=== PATIENT | female | born 1990 | race Caucasian/White ===

== ENCOUNTER 2021-04-18 01:18 | Emergency (ER) | payer OTHER ==
[~2021-04-18] VITALS: Ht 157.5 cm; Wt 83.2 kg
[~2021-04-18 01:18] MED LIST: MOTRIN 600600 MG/TAB PO; PERCOCET 325 MG1 TA2 PO; PRENATAL1 TA7 PO; SYNTHROID 0.0.025 MG PO
[2021-04-18 01:47] LABS: COLLECTION METHOD CLEAN CATCH
[2021-04-18 02:06] LABS: BUDDING YEAST Present /hpf; PH 6 (5-8); SQUAMOUS EPITHELIAL 0-2 /hpf; URINE APPEARANCE Cloudy; URINE BACTERIA None Seen /hpf; URINE BILIRUBIN Negative (NEGATIVE); URINE BLOOD 3+ (NEGATIVE); URINE COLOR Yellow; URINE GLUCOSE Negative (NEGATIVE); URINE KETONE Negative (NEGATIVE); URINE LEUKOCYTE ESTERASE 3+ (NEGATIVE); URINE NITRATE Negative (NEGATIVE); URINE PROTEIN(semi-quant) 2+ (NEGATIVE); URINE RBC >50 /hpf; URINE UROBILINOGEN Negative (NEGATIVE)
[2021-04-18] MEDS ORDERED: CEFTIN 250250 MG/TAB PO (02:13)
[2021-04-18 02:30] VITALS: BP 131/70; PULSE 71; TEMP 98.1
== END 2021-04-18 02:30 | disposition home or self-care (01) ==
LOC: COL.ER 01:18
PROVIDERS: Nurse Practitioner
DX: N39.0 Urinary tract infection, site not specified (principal); E03.9 Hypothyroidism, unspecified; Z32.02 Encounter for pregnancy test, result negative; Z79.890 Hormone replacement therapy